=== PATIENT | female | born 1985 | race Two or more races ===

== ENCOUNTER 2023-02-11 11:03 | Emergency (ER) | payer SELFPAY ==
[~2023-02-11] VITALS: Ht 149.9 cm; Wt 56.7 kg
[2023-02-11] MEDS ORDERED: predniSONE 20 MG TABLET PO ONE (12:00)
[2023-02-11] MEDS ORDERED: ALBUTEROL FS 2.5 MG/3 ML VIAL.NEB CONTNEB ONE (12:00)
[2023-02-11] MEDS ORDERED: IPRATROPIUM NEB FS 0.5 MG/2.5 ML AMPUL.NEB NEB ONE (12:00)
[2023-02-11] MEDS ORDERED: predniSONE 20 MG TABLET ONE (12:05)
[2023-02-11] MEDS ORDERED: ALBUTEROL FS 2.5 MG/3 ML VIAL.NEB ONE (12:16)
[2023-02-11] MEDS ORDERED: IPRATROPIUM NEB FS 0.5 MG/2.5 ML AMPUL.NEB ONE (12:16)
[2023-02-11 12:18] VITALS: O2SAT 95
[2023-02-11] MEDS ORDERED: ALBU18HF2 INH ×2 (13:21→15:14)
[2023-02-11] MEDS ORDERED: PRED20TA PO (13:21)
[2023-02-11] MEDS ORDERED: IBUP-1955 PO (13:21)
[2023-02-11] MEDS ORDERED: BENZ-13 PO (13:21)
[2023-02-11 13:55] VITALS: O2SAT 98
[2023-02-11 14:03] VITALS: BP 135/80; TEMP 98.6; O2SAT 98
== END 2023-02-11 14:04 | disposition home or self-care (01) ==
LOC: ER 11:03
DX: J98.01 Acute bronchospasm (principal); J06.9 Acute upper respiratory infection, unspecified; R05.9 Cough, unspecified; R09.81 Nasal congestion; J40 Bronchitis, not specified as acute or chronic; Z20.822 Contact with and (suspected) exposure to COVID-19
CPT/HCPCS: 99285; 71045; 87426; 87804 ×2; 94644; J7512; C9803